=== PATIENT | male | born 1965 | race Two or more races ===

== ENCOUNTER 2019-04-15 22:24 | Emergency (ER) | payer MEDICAID ==
[~2019-04-15] VITALS: Ht 175.3 cm; Wt 82.0 kg
[2019-04-16] MEDS ORDERED: KETOROLAC 30MG/ML VIAL IV ONE (01:45)
[2019-04-16] MEDS ORDERED: DIAZEPAM 5 MG/ML 2ML CPJ IV ONE (01:45)
[2019-04-16 02:04] LABS: BASOPHILS % 0.8 % (0.0-2.0); EOSINOPHILS % 0.2 % (0.0-5.0); HEMATOCRIT. 43.1 % (42.0-52.0); HEMOGLOBIN. 14.7 g/dL (14.0-18.0); LYMPHOCYTES % 9.3 % (20.0-50.0); MEAN CORPUSCULAR HEMOGLOBIN 30.2 pg (28.0-32.0); MEAN CORPUSCULAR VOLUME 88.7 fL (80.0-94.0); MONOCYTES % 1.9 % (2.0-8.0); NEUTROPHILS % 87.8 % (40.0-76.0); PLATELET 359 x1000/uL (130-400); RED BLOOD CELL COUNT 4.86 mill/uL (4.7-6.1); RED CELL DISTRIBUTION WIDTH 14.3 % (11.6-14.6)
[2019-04-16 02:10] LABS: CHLORIDE 107 mEq/L (98-107)
[2019-04-16] MEDS ORDERED: IOHEXOL-300 100 ML BOTTLE ONE (04:43)
[2019-04-16 06:00] VITALS: BP 113/61
== END 2019-04-16 06:27 | disposition home or self-care (01) ==
LOC: ER 22:24
DX: K52.9 Noninfective gastroenteritis and colitis, unspecified (principal); K44.9 Diaphragmatic hernia without obstruction or gangrene; F17.210 Nicotine dependence, cigarettes, uncomplicated
CPT/HCPCS: 36415; 74177; 80053; 83605; 83690; 85025; 96374; 96375; 99284; J1885; J3360; Q9967; Z7610